=== PATIENT | male | born 1995 | race Hispanic/Latino ===

== ENCOUNTER 2023-02-13 07:35 | Inpatient (IN) | payer SELFPAY ==
[2023-02-13] MEDS ORDERED: Ketorolac Tromethamine 30 MG/ML VIAL ONE (08:01)
[2023-02-13] MEDS ORDERED: Ondansetron PF 4 MG/2 ML Vial ONE (08:01)
[2023-02-13 08:45] LABS: Hematocrit 42.5 % (38.8-50.0); Hemoglobin 14.9 g/dL (13.5-17.5); Mean Corpuscular Hemoglobin 29.7 pg (27.0-33.0); Mean Corpuscular Volume 84.8 fl (81.2-95.1); Red Blood Cell (RBC) Count 5.01 10x6/uL (4.32-5.72); White Blood Cell (WBC) Count 14.3 10x3/uL (3.5-10.5)
[2023-02-13 08:46] LABS: %Basophils 0.5 % (0.0-2.0); %Eosinophils 0.1 % (0.0-6.0); %Monocytes 6.9 % (0.0-10.0); %Neutrophils 83.1 % (40.0-75.0); Mean Corpuscular HGB CONC 35.1 g/dL (32.0-36.0); Mean Platelet Volume 11.2 fl (7.4-10.4); Platelet Count 238 10x3/uL (130-400); RBC Distribution Width 12.9 % (11.5-14.5)
[2023-02-13 08:47] LABS: #Basophils 0.1 10x3/uL (0.0-0.2); #Neutrophils 11.9 10x3/uL (1.5-8.4)
[2023-02-13 08:49] LABS: Calc. Creatinine Clearance 0 mL/min (70-130)
[2023-02-13 08:50] LABS: ALT (SGPT) 115 U/L (8-55); AST (SGOT) 39 U/L (5-34); Albumin 4.6 g/dL (3.5-5.0); Alkaline Phosphatase 60 U/L (40-110); Anion Gap 16 mmol/L (10-20); BUN (Urea Nitrogen) 13 mg/dL (8.9-20.6); Bilirubin, Total 1.1 mg/dL (0.2-1.2); Calcium 9.5 mg/dL (7.8-10.44); Carbon Dioxide 20 mmol/L (22-29); Chloride 104 mmol/L (98-107); Estimated GFR 121; Globulin 3.4 g/dL (2.4-3.5); Glucose 121 mg/dL (70-105); Lipase 6 U/L (8-78); Potassium 3.6 mmol/L (3.5-5.1); Sodium 136 mmol/L (136-145)
[2023-02-13] MEDS ORDERED: metroNIDAZOLE 500 MG/100 ML BAG ONE (08:59)
[2023-02-13] MEDS ORDERED: Iopamidol 300 61% 100 ML VIAL FS ONE (09:46)
[2023-02-13] MEDS ORDERED: Acetaminophen 325 MG TAB PO PRN (10:42)
[2023-02-13] MEDS ORDERED: Ondansetron PF 4 MG/2 ML Vial IVP PRN (10:42)
[2023-02-13] MEDS ORDERED: Lactated Ringer's 1,000 ML IV SCH (11:30)
[2023-02-13 13:13] VITALS: BMI 35.6
[2023-02-13] MEDS: HYDROcodone/Acetaminophen 10/325 mg Tablet PO PRN (13:39)
[2023-02-13] MEDS ORDERED: Folic Acid 1 MG TAB PO SCH (14:00)
[2023-02-13] MEDS ORDERED: Multivit, Therapeutic 1 TAB PO SCH (14:00)
[2023-02-13] MEDS ORDERED: Piperacillin/Tazobactam 3.375 GM in Sodium Chloride 0.9% 100 ML IVPB SCH (14:00)
[2023-02-13] MEDS ORDERED: Thiamine 100 MG TAB PO SCH (14:00)
[2023-02-13] MEDS: Piperacillin/Tazobactam 3.375 GM in Sodium Chloride 0.9% 100 ML IVPB SCH (16:26)
[2023-02-14] MEDS: Piperacillin/Tazobactam 3.375 GM in Sodium Chloride 0.9% 100 ML IVPB SCH ×2 (02:03→11:40)
[2023-02-14] MEDS: HYDROcodone/Acetaminophen 10/325 mg Tablet PO PRN (08:24)
[2023-02-14] MEDS ORDERED: Folic Acid 1 MG TAB PO SCH (09:00)
[2023-02-14] MEDS ORDERED: Thiamine 100 MG TAB PO SCH (09:00)
[2023-02-14] MEDS ORDERED: Multivit, Therapeutic 1 TAB PO SCH (09:00)
[2023-02-14] MEDS ORDERED: Ciprofloxacin 500 MG TAB PO SCH ×3 (11:00→20:00)
[2023-02-14] MEDS ORDERED: metroNIDAZOLE 500 MG TAB PO SCH ×3 (11:00→21:00)
[2023-02-14 11:42] LABS: #Basophils 0.1 10x3/uL (0.0-0.2); #Eosinphils 0.1 10x3/uL (0.0-0.5); #Monocytes 0.7 10x3/uL (0.0-1.1); #Neutrophils 7.1 10x3/uL (1.5-8.4); %Basophils 0.5 % (0.0-2.0); %Eosinophils 1.2 % (0.0-6.0); %Lymphocytes 23.7 % (18.0-47.0); %Monocytes 6.9 % (0.0-10.0); %Neutrophils 67.2 % (40.0-75.0); Hematocrit 40.3 % (38.8-50.0); Mean Corpuscular HGB CONC 34.7 g/dL (32.0-36.0); Mean Corpuscular Hemoglobin 30.4 pg (27.0-33.0); Mean Corpuscular Volume 87.4 fl (81.2-95.1); Mean Platelet Volume 11.4 fl (7.4-10.4); Platelet Count 201 10x3/uL (150-450); RBC Distribution Width 12.7 % (11.5-14.5); Red Blood Cell (RBC) Count 4.61 10x6/uL (4.32-5.72); White Blood Cell (WBC) Count 10.5 10x3/uL (3.5-10.5)
[2023-02-14 11:48] LABS: ALT (SGPT) 96 U/L (8-55); AST (SGOT) 39 U/L (5-34); Alkaline Phosphatase 52 U/L (40-110); Anion Gap 12 mmol/L (10-20); BUN (Urea Nitrogen) 10 mg/dL (8.9-20.6); Bilirubin, Total 1.3 mg/dL (0.2-1.2); Calc. Creatinine Clearance 196 mL/min (70-130); Calcium 9.3 mg/dL (7.8-10.44); Carbon Dioxide 24 mmol/L (22-29); Chloride 105 mmol/L (98-107); Estimated GFR 123; Globulin 3.3 g/dL (2.4-3.5); Glucose 98 mg/dL (70-105); Magnesium 2.1 mg/dL (1.6-2.6); Potassium 3.7 mmol/L (3.5-5.1); Protein, Total 7.3 g/dL (6.0-8.3); Sodium 137 mmol/L (136-145)
[2023-02-14 12:06] LABS: Thyroid Stimulating Hormone 2.9536 uIU/mL (0.35-4.94)
[2023-02-14 15:15] VITALS: BP 131/66; TEMP 99.6
[2023-02-14] MEDS ORDERED: Amoxicillin/Potassium Clav 875 MG TAB PO SCH (15:15)
[2023-02-15 07:44] LABS: HBSAg Index 0.21 S/CO (0-0.99); Hep B Surf Ag Non-Reactive S/CO (NonReactive)
[2023-02-15 13:39] LABS: Hemoglobin A1c 5.2 % (4.0-6.0)
[2023-02-15 14:27] LABS: HBCM Index 0.08 S/CO (0-0.79); Hep A IgM AB Non-Reactive S/CO (NonReactive); Hep A IgM S/CO 0.38 S/CO (0-0.79); Hep C IgG Ab Non-Reactive S/CO (NonReactive); Hepatitis B Core IgM Abs Non-Reactive S/CO (NonReactive)
== END 2023-02-14 16:09 | disposition home or self-care (01) | DRG 392 ==
LOC: CSHERS 07:35 → CSHTELE 09:28
PROVIDERS: ADMIT Family Medicine; ATTEND Family Medicine
DX: K57.20 Diverticulitis of large intestine with perforation and abscess without bleeding (principal); E66.9 Obesity, unspecified; F10.10 Alcohol abuse, uncomplicated; Z71.41 Alcohol abuse counseling and surveillance of alcoholic; Z68.35 Body mass index [BMI] 35.0-35.9, adult; K76.0 Fatty (change of) liver, not elsewhere classified
CPT/HCPCS: 36416; 74177; 80053; 80074; 83036; 83605; 83690; 83735; 84443; 85025; 96365; 96366; 96367; 96375; J0744; J1650; J1885; J2405; J2543; J3490; J7120; Q9967